=== PATIENT | female | born 1950 | race Caucasian/White ===

== ENCOUNTER 2016-12-22 15:17 | Emergency (ER) | payer MEDICAID ==
[~2016-12-22] VITALS: Ht 160 cm; Wt 55.0 kg
[2016-12-22] MEDS ORDERED: ALBUTEROL/IPRATROPIUM 2.5MG/0.5MG, 3 ML NPPB ONE (16:00)
[2016-12-22 16:10] LABS: HEMOGLOBIN 16.5 g/dL (11.7-16.4); WHITE BLOOD COUNT 12.8 x10^3/uL (3.4-10)
[2016-12-22] MEDS ORDERED: ALBUTEROL/IPRATROPIUM 2.5MG/0.5MG, 3 ML ONE (16:11)
[2016-12-22 16:21] LABS: BLOOD UREA NITROGEN 21 mg/dL (7-18)
[2016-12-22 16:29] LABS: IS PT STATUS REG ER OR PRE ER? YES
[2016-12-22 17:54] VITALS: BP 144/74
== END 2016-12-22 17:56 | disposition home or self-care (01) ==
LOC: ED 17:45
DX: J44.1 Chronic obstructive pulmonary disease with (acute) exacerbation (principal); F17.200 Nicotine dependence, unspecified, uncomplicated; K21.9 Gastro-esophageal reflux disease without esophagitis
CPT/HCPCS: 36415; 71010; 80048; 82040; 83880; 84484; 85025; 93005; 94640; 99285; J7512; J7620